=== PATIENT | male | born 1990 | race Caucasian/White ===

== ENCOUNTER 2016-12-30 12:55 | Emergency (ER) | payer MEDICAID, OTHER ==
[~2016-12-30] VITALS: Wt 89.0 kg
[~2016-12-30 12:55] MED LIST: HYDR-3498 PO; LEVO250T35 PO; ONDA4TAB35 PO
[2016-12-30] MEDS ORDERED: HYDROmorphONE 1 MG/ML SYG IV STA (13:15)
[2016-12-30] MEDS ORDERED: ONDANSETRON 4 MG INJ IV STA ×2 (13:15→13:46)
[2016-12-30] MEDS ORDERED: DIAZEPAM 5 MG/ML SYG IV ONE (13:30)
[2016-12-30] MEDS ORDERED: CIPR500T4 PO (13:52)
[2016-12-30] MEDS ORDERED: ZOF8 PO (13:53)
[2016-12-30] MEDS ORDERED: DIPHENHYDRAMINE 50 MG INJ IV ONE (14:30)
[2016-12-30 14:56] VITALS: BP 124/74; PULSE 81; RESP 16; TEMP 98.3
[2016-12-30 15:01] LABS: ADD UMIC YES; UR ASCORBIC ACID 40 mg/dL (NEGATIVE); UR BACTERIA MODERATE /HPF (NONE SEEN); UR BILIRUBIN (Dip) NEGATIVE (NEGATIVE); UR BLOOD (Dip) NEGATIVE (NEGATIVE); UR CLARITY CLOUDY (CLEAR); UR COLOR AMBER (YELLOW); UR GLUCOSE (Dip) NEGATIVE (NEGATIVE); UR KETONES (Dip) 1+ mg/dL (NEGATIVE); UR LEUKOCYTE ESTERASE (Dip) 3+ Leu/ul (NEGATIVE); UR MUCUS FEW /HPF (NONE SEEN); UR NITRITE (Dip) POSITIVE (NEGATIVE); UR RBC 3 /HPF (0-5); UR SQUAMOUS EPITHELIAL CELL FEW /HPF (FEW); UR TOTAL PROTEIN (Dip) 1+ mg/dl (NEGATIVE); UR UROBILINOGEN (Dip) NEGATIVE (NEGATIVE); UR WBC CLUMPS MANY /HPF (NONE SEEN)
--- NOTE | 2017-01-15 14:05 | ERD ---
DATE OF SERVICE: 12/30/2016 CHIEF COMPLAINT: Johnson catheter removal. HISTORY OF PRESENT ILLNESS: This is a 26-year-old male with a significant past surgical history to including the patient's penis, bladder and pelvis secondary to trauma from a horseback riding accident roughly 10 years prior to arrival. The patient has a urologist who performed the patient's surgery, but is currently out of town. 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 He indicated there was a minimal amount of blood that came from the urethra and he is presenting to the emergency department requesting catheter replacement. He stated he had this happen multiple times in the past. He has multiple diverticula of the urethra which states that make it difficult to place a Johnson catheter. He did go to an urgent care clinic prior to arrival and he received IM Dilaudid, but they were unable to successfully pass a Johnson catheter; therefore he presents to the emergency department requesting catheter placement. He denies any abdominal pain. He denies any frequency, urgency, or dysuria. PAST MEDICAL HISTORY: Blunt pelvic trauma. PAST SURGICAL HISTORY: Orchiectomy, multiple past surgical history with repair of the patient's bladder and urethra. ALLERGIES: FENTANYL, CEPHULAC. SOCIAL HISTORY: Denies tobacco, ETOH, or drug use. REVIEW OF SYSTEMS: All 12 systems reviewed and negative other than stated in the history of present illness. PHYSICAL EXAMINATION: VITAL SIGNS: Blood pressure is 124/74, respiratory rate 16, pulse ox 99 percent on room air, temperature is 98.3, pulse rate 81. CONSTITUTIONAL: Well-developed, well-nourished male, appears to be uncomfortable secondary to pain. HEENT: Normocephalic, atraumatic. No nasal septal hematoma. No hemotympanum. No scalp hematomas. No blood present within the oropharynx. NECK: No posterior cervical spine tenderness or step-offs. LUNGS: Lungs are clear to auscultation bilaterally. No wheezing, no rales. CARDIOVASCULAR: Regular rate, regular rhythm, S1, S2. No murmurs, rubs appreciated. Distal pulses are palpable 2+ bilaterally. Cap refill less than 2 seconds. No flail chest, no crepitus. No ecchymosis. GI: Abdomen is soft, nontender, nondistended. Bowel sounds are positive. Palpable bladder. No flank ecchymosis, no periumbilical ecchymosis. : On the dorsal aspect of the penis the patient has multiple previous surgical incision scars. No blood present at the tip of the urethra. Normal line of both testicles. Cremaster reflex intact bilaterally. SKIN: Warm, dry with no cyanosis, clubbing, or edema. No petechiae or purpura. NEUROLOGICAL: Patient is alert, awake, oriented x3. No focal neurological deficits. Gait is normal. DIAGNOSTIC TEST INTERPRETATION: Pulse oximeter was normal. There was no evidence of hypoxemia. MEDICAL DECISION MAKING/EMERGENCY DEPARTMENT COURSE: In ED the patient was seen and evaluated by myself. The patient has a significant past surgical history which requires the patient to have an indwelling Johnson catheter. He has had multiple similar episodes where the catheter has accidentally been removed and due to the difficulty of placement from previous scar tissue of the urethra, the patient does often requires sedation for Johnson catheter placement. Please note that I had seen the patient 6 days prior to arrival at another hospital at [facility] with the exact same situation. When we were reviewing the chart at [facility] the patient has been there several times before for similar symptoms. He required very high doses of Dilaudid for the placement and also has had conscious sedation performed by myself in the past for the Johnson catheter placement. When I placed the Johnson catheter under propofol sedation 6 days prior to arrival at another facility, there was no difficulty passing the Johnson catheter and I did not meet resistance. At this time I did indicate to the patient that this could be drug-seeking behavior; however, he does have as stated above a significant past surgical history that requires the Johnson catheter to be placed in order to prevent urinary retention. The patient received IM Dilaudid and Valium and Zofran as an antiemetic as well as Benadryl as he states the Dilaudid causes pruritus. I was able to place by myself with nursing staff present at bedside without any difficulty a Johnson catheter. There was no blood present within the urethra and there was clear urine draining from the Johnson catheter site with no concerns of hematuria or obstructive uropathy. FINAL DISPOSITION: Patient is discharged home in fair condition with strict instructions to return to the emergency department immediately if there was any worsening. He was sent home with a leg bag. I also again instructed the patient the importance of preventing the Johnson catheter removal, and he stated he will follow up with his urologist who currently is out of town. IMPRESSION: Johnson catheter placement. CRITICAL CARE TIME: The patient required my highest level of attention with a critical care time of 30 minutes. Time was spent examining and re-examining the patient, history, reviewing old records, arrange for future care. Time did not include performing any of the above procedures. Dictated By: Alison Serna MD /[email or web address] /Document#: [id number]
== END 2016-12-30 15:35 | disposition home or self-care (01) ==
LOC: E/R 12:55
DX: T83.091A Other mechanical complication of indwelling urethral catheter, initial encounter (principal); Y73.8 Miscellaneous gastroenterology and urology devices associated with adverse incidents, not elsewhere classified
CPT/HCPCS: 81001; 87086; 96374; 96375; 96376; J1170; J1200; J2405; J3360; Z7502

== ENCOUNTER 2017-02-21 00:45 | Emergency (ER) | payer OTHER ==
[~2017-02-21] VITALS: Ht 180.3 cm; Wt 80.0 kg
[~2017-02-21 00:45] MED LIST changes: +CIPR500T4 PO; -HYDR-3498 PO; -LEVO250T35 PO; -ONDA4TAB35 PO; +ZOF8 PO
[2017-02-21 00:48] VITALS: Ht 180.3 cm; Wt 80.0 kg
[2017-02-21] MEDS ORDERED: HYDROmorphONE 1 MG/ML SYG IV STA (01:49)
[2017-02-21] MEDS ORDERED: DIPHENHYDRAMINE 50 MG INJ IV ONE ×2 (02:00)
[2017-02-21] MEDS ORDERED: DIAZEPAM 5 MG/ML SYG IV ONE (02:00)
[2017-02-21 02:46] VITALS: BP 146/64; PULSE 89; RESP 18; TEMP 98.2
[2017-02-21] MEDS ORDERED: TRAM50TA2 PO (05:01)
--- NOTE | 2017-02-21 05:13 | ERD ---
ER Documentation Chief Complaint Date/Time DATE: 02/21/17 TIME: 05:12 Chief Complaint c/o "urinary catheter got ripped out." Bleeding through meatus. HPI 6-year-old male well-known to me comes in saying his urinary catheter was ripped out. Patient says happened while he was trying to obtain his horses. This patient is well-known to me from multiple different hospitals and comes in with similar stories and exhibits drug-seeking behavior. However the patient does have a complicated history with his urinary tract and this has happened before with difficulty passing another Johnson catheter. ROS All systems reviewed and are negative except as per history of present illness. Medications Home Meds Active Scripts Tramadol HCl (Tramadol HCl) 50 Mg Tablet, 50 MG PO Q4 Y for PAIN, #20 TAB Prov:STACIETRACI DoCecelia 02/21/17 Reported Medications Ondansetron Hcl* (Zofran*) 8 Mg Tab, 8 MG PO Q6H Y for NAUSEA AND OR VOMITING, TAB 12/30/16 Ciprofloxacin Hcl* (Ciprofloxacin Hcl*) 500 Mg Tablet, 500 MG PO BID, #14 TAB STARTED 12-25-16 FOR 10 DAYS 12/30/16 Allergies Allergies: Coded Allergies: fentanyl (Verified Allergy, Unknown, 12/30/16) ketorolac (Verified Allergy, Unknown, 12/30/16) PMhx/Soc History of Surgery: Yes (BLADDER SURGERY MULT TIME.) Anesthesia Reaction: No Hx Neurological Disorder: No Hx Respiratory Disorders: No Hx Cardiac Disorders: No Hx Psychiatric Problems: No Hx Miscellaneous Medical Probl: Yes (UA RETENTION) Hx Alcohol Use: No Hx Substance Use: No Hx Tobacco Use: No Smoking Status: Never smoker Physical Exam Vitals Vital Signs Date Time Temp Pulse Resp B/P Pulse Ox O2 Delivery O2 Flow Rate FiO2 02/21/17 02:46 98.2 89 18 146/64 100 Room Air 02/21/17 00:48 98.2 120 18 161/86 97 Physical Exam Const: [] Head: Atraumatic Eyes: Normal Conjunctiva ENT: Normal External Ears, Nose and Mouth. Neck: Full range of motion..~ No meningismus. Resp: Clear to auscultation bilaterally Cardio: Regular rate and rhythm, no murmurs Abd: Soft, non tender, non distended. Normal bowel sounds Skin: No petechiae or rashes Back: No midline or flank tenderness Ext: No cyanosis, or edema Neur: Awake and alert Psych: Normal Mood and Affect Results 24 hrs Current Medications Medications (Trade) Dose Ordered Sig/Brunilda Route PRN Reason Start Time Stop Time Status Last Admin Dose Admin Hydromorphone HCl (Dilaudid) 1 mg ONCE STAT IV 02/21/17 01:49 02/21/17 01:50 DC 02/21/17 02:23 Diazepam (Valium) 5 mg ONCE ONCE IV 02/21/17 02:00 02/21/17 02:01 DC 02/21/17 02:23 Diphenhydramine HCl (Benadryl) 50 mg ONCE ONCE IV 02/21/17 02:00 02/21/17 02:01 DC 02/21/17 02:23 Diphenhydramine HCl (Benadryl) 50 mg ONCE ONCE IV 02/21/17 02:00 02/21/17 02:01 DC Procedures/MDM Was premedicated with Dilaudid Benadryl and Valium per his own request. Patient and said it was difficult to pass a Johnson. He has tried another dose of medication, at which point I did not feel comfortable given the patient's drug-seeking behavior. Patient eloped prior to discharge. Departure Diagnosis: Primary Impression: Retention of urine Condition: Stable Patient Instructions: Urinary Retention, Male TRACI QUINONES Feb 21, 2017 05:13
== END 2017-02-21 05:20 | disposition left against medical advice (07) ==
LOC: E/R 00:45
DX: R33.9 Retention of urine, unspecified (principal)
CPT/HCPCS: 96374; 96375; J1170; J1200; J3360; Z7502